=== PATIENT | male | born 1940 | race Caucasian/White ===

== ENCOUNTER → 2017-02-22 | Outpatient (CLI) | payer MEDICARE, OTHER ==
[~2017-02-22] MED LIST: ASPIRIN EC81 MG PO; ASPIRIN LO-DOSE81 MG PO; AVODART0.5 MG PO; BRILINTA90 MG PO; COUMADIN ** IA3 MG PO; COUMADIN **IA1 MG PO; CRESTOR40 MG PO; DESYREL50 MG PO; FISH OIL1000 MG PO; NEXIUM40 MG PO; OCUVITE WITH L1 EACH PO; PLAVIX75 MG PO; RANEXA1000 MG PO; STOOL SOFTENER100 M1 PO; TYLENOL EXTRA500 MG PO
== END | disposition disaster alternative care site (69) ==
LOC: GRAD 11:53
DX: I71.4 Abdominal aortic aneurysm, without rupture (principal); R31.9 Hematuria, unspecified; N13.2 Hydronephrosis with renal and ureteral calculous obstruction; I77.819 Aortic ectasia, unspecified site

== ENCOUNTER → 2017-02-28 | Outpatient (CLI) | payer MEDICARE, OTHER | LOC: LGSMG 14:43 | DX: R06.02 Shortness of breath (principal) ==

== ENCOUNTER → 2017-03-05 | Outpatient (CLI) | payer MEDICARE, OTHER ==
--- NOTE | ~2017-03-05 | PUL ---
PATIENT'S NAME: ELIDA DAVIS [facility] AGE: 76 Y [address] ROOM: [place] [address] LOCATION: [facility] ADMIT DATE: 03/05/2017 Pulmonary DISCHARGE DATE: FAMILY PHYSICIAN: CALOS MITCHELL MD ATTENDING PHYSICIAN: CALOS MITCHELL NAME OF PROCEDURE: Pulmonary Function Test DATE OF PROCEDURE: March 05, 2017 TECH: ATripe, POT HOLDER BINDER REASON FOR EXAM: Shortness of breath on exertion RESULTS: 1. FVC was 3.04 liters which is 81% of predicted and normal, FEV1 was 2.31 liters which is 85% of predicted and normal, and FEV1/FVC was 76% and normal. The flow volume curve did not reveal any significant airflow limitation. After bronchodilator administration FVC increased to 3.11 liters which is a 2% increase and FEV1 increased to 2.46 liters which is a 6% increase. FEV1/FVC was 79%. 2. DLCO was 10.1 with an adjusted DLCO of 11.3 which is 65% of predicted and normal. 3. Total lung capacity was 5.33 liters which is 93% of predicted and normal, and residual volume was 2.29 liters which is 95% of predicted and normal. PHYSICIAN INTERPRETATION: The patient has no airflow limitation and no significant bronchodilator response. His diffusion capacity is normal. There is no evidence of restrictive lung disease. Essentially this is a normal pulmonary function test. MD BARRERA SANTIZO/sami /[id number] dtt: 03/06/17 1248 , ZULLY MCNEAL dtd: 03/06/17 1003
--- NOTE | ~2017-03-05 | PUL ---
PATIENT'S NAME: ELIDA DAVIS [facility] AGE: 76 Y [address] ROOM: [place] [address] LOCATION: [facility] ADMIT DATE: 03/05/2017 Pulmonary DISCHARGE DATE: FAMILY PHYSICIAN: CALOS MITCHELL MD ATTENDING PHYSICIAN: CALOS MITCHELL NAME OF PROCEDURE: Six Minute Walk Test DATE OF PROCEDURE: March 05, 2017 TECH: ATripe, RECEPTIONIST AIRLINE LOUNGE REASON FOR EXAM: Shortness of breath on exertion RESULTS: The test was performed on room air. The patient walked for 1500 feet at a pace of 2.84 miles/hour. His oxygen saturation was 98% at the beginning of the test, and 96% after the test. He had no periods of rest. His perceived dyspnea was 4/10 on the So scale. He had appropriate increases in his heart rate and blood pressure. PHYSICIAN INTERPRETATION: The patient has no significant exercise limitation. There is no evidence of exercise induced hypoxia or significant desaturations. MD BARRERA SANTIZO/sami /[id number] dtt: 03/06/17 1253 , ZULLY MCNEAL dtd: 03/06/17 1005
== END | disposition disaster alternative care site (69) ==
LOC: GRTH 12:31
DX: R06.02 Shortness of breath (principal)

== ENCOUNTER → 2017-03-07 | Outpatient (CLI) | payer MEDICARE, OTHER | END | disposition disaster alternative care site (69) | LOC: LGSMG 11:43 | DX: R06.09 Other forms of dyspnea (principal) ==

== ENCOUNTER → 2017-03-08 | Outpatient (CLI) | payer MEDICARE, OTHER ==
--- NOTE | ~2017-03-08 | ESTC ---
Cardiac Perfusion Imaging Demographics Patient Name RYAN Grimaldo Gender Male Patient Number [id number] Race Visit Number [id number] [place] [id number] Room Number Accession Number [id number] Height 68 inches Date of 1940 Weight 156 pounds Interpreting Leah Eller Date of study 03/08/2017 Physician Supervising /KELLENP Elliot Bradshaw APRN NM Technologist Ana Gutierrez Ordering Physician Leah Eller Stress MD manufacturing production technician Stress ECG Reading Elliot Bradshaw APRN Nurse Frandy Sharp Physician RN Medications Reviewed with Patient prior to Procedure. Procedure Procedure Type: Nuclear Stress Test:Exercise, Cardiolite Stress Test Procedure Start time: 03/08/2017 08:10 Indications: Angina, History of CAD and Dyspnea. Risk Factors The patient risk factors include:prior PCI on 08/02/2016;former tobacco use, hypercholesterolemia, family history of premature CAD, dyslipidemia and ( years not smokin). Conclusions Summary Perfusion Images: The overall quality of the study is poor, due to gastrointestinal tracer uptake. Left ventricular cavity is noted to be normal on the stress and normal on the rest images. There is no evidence of abnormal lung activity. The right ventricle is not visualized an cannot be assessed. Impression ECG portion of the exercise stress test is clinically positive for ischemia by diagnostic criteria. > [address] depressions in leads 1, aVL, V4,5,6 that persist > 5 minutes into recovery. Myocardial perfusion imaging appears normal, however due to scatter artifact, it is difficult to exclude ischemia in the inferior wall. Overall left ventricular systolic function was normal. Calculated LVEF is 65% and TID ratio is 0.99. Recommendation Given the clinical presentation of BRYAN that is new onset, having to limit activities due to sob, that recur with exertion, and high risk findings on ecg portion of exercise stress test in patient with known CAD, the presentation is consistent with unstable angina. Of note, PFT's were normal. We will make arrangements for cardiac cath after discussing with patient. Stress Protocols Resting ECG Normal sinus rhythm. Pre-stress physical exam: Patient assessed by Sophia GONZALEZ prior to testing. Chest - CTA Cardio - RRR, S1, S2 Peak HR:137 bpm HR response: Appropriate Peak BP:142/50 mmHg BP response: Appropriate Predicted HR: 146 bpm HR/BP product:90966 % of predicted HR: 94 Reason for termination:Target heart rate ECG Findings Indeterminate ECG due to lead placement and artifact. Arrhythmias No rhythm abnormality noted from areas of interpretation. Symptoms Shortness of breath. Complications Procedure complication: None. Stress Interpretation Patient walked for 7.5 minutes through 3 stages of GAVI protocol. Appropriate hemodynamic response to exercise. No significant ST-T wave changes with exercise due to EKG artifact. First interpretable EKG during Will correlate with nuclear images. Imaging Results Applied corrections - Motion correction applied High risk findings Summed scores - Summed stress score: 8 - Summed rest score: 5 - Summed difference score: 3 Stress ejection Ejection fraction:66 % EDV :96 ml ESV :33 ml Stroke volume :63 ml LV mass :135 gr Imaging Protocols Rest Stress Isotope:Tc99m Sestamibi IV Isotope: Tc99m Sestamibi IV Isotope dose:10.7 mCi Isotope dose:31.8 mCi Date:03/08/2017 06:58 Date:03/08/2017 09:00 Technique: SPECT Technique: Gated Supine SPECT Supine Scan Time:45-60 minutes post Scan Time:45-60 minutes post injection injection Medical History Admission Data Admission date: 03/08/2017 Admission Time: 06:32 Hospital Status: Outpatient. Signatures dtt: DAPHNIE AGUILAR dtd: 03/08/17 0810 Physician Self Edit
--- NOTE | ~2017-03-08 | ECHO ---
Transthoracic Echocardiography Report (TTE) Demographics Patient Name ELIDA DAVIS Date of Study 03/08/2017 Patient Number [id number] Visit Number [id number] Date of 1940 Room Number Gender Male Number Age 76 year(s) Referring Leah Eller Stained Glass Artist Ana Collins, Physician RT,RVT,RDCS Physician Interpreting Leah Eller Professor Of Religious Studies Physician Supervising Ordering Leah Eller MD/MLP Physician Nurse Stress Personal Vehicle Advisor Conclusions Contractility Score Summary Normal Left Ventricular contractility was noted. Summary Normal LV/RV size and systolic function. The estimated left ventricular ejection fraction is 65-70%. Diastolic flow assessment reveals impaired relaxation consistent with Grade I diastolic dysfunction . Mild concentric left ventricular hypertrophy. Mild left atrial enlargement. There is moderate aortic regurgitation by color Doppler. No evidence of pericardial effusion. Procedure Type of Study TTE procedure:2D Echocardiogram, M-Mode, Doppler , Color Doppler. Procedure Date Date: 03/08/2017 Start: 09:21 AM Study Location: Echo Lab Technical Quality: Adequate visualization Indications:Heart murmur. Appropriate Use Criteria: 9 Patient Status: Routine HR: 70 bpm BP: 164/72 mmHg Allergies - Other:(Lipitor). M-Mode/2D Measurements LV Diastolic Dimension: 4.76 cm LV Systolic Dimension: 2.61 cm LV Septum Diastolic: 1.05 cm LV PW Diastolic: 1.21 cm Cardiac Output: 5.74 l/min RV Diastolic Dimension: 2.37 cm LVOT VTI: 26.1 cm EF Estimated: 70 % LV Stroke volume: 81.95 ml Doppler Measurements AV Peak Velocity: 1.57 m/s MV Peak E-Wave: 0.93 m/s AV Peak Gradient: 9.86 mmHg MV Peak A-Wave: 1.01 m/s AV Mean Gradient: 4 mmHg MV E/A Ratio: 0.92 LVOT Peak Velocity: 1.12 m/s MV P1/2t: 53 msec AV P1/2t: 455 msec TR Gradient:22.28 mmHg PV Peak Velocity: 1.24 m/s Estimated RAP:10 mmHg PV Peak Gradient: 6.15 mmHg Estimated RVSP: 32 mmHg Estimated PASP: 32.28 mmHg E' Septal Velocity: 0.08 m/s A' Septal Velocity: 0.1 m/s MV E/E' Ratio: 10.8 Findings Left Ventricle Mild concentric left ventricular hypertrophy. Right Ventricle Normal right ventricle structure and function. Left Atrium Mild left atrial enlargement. Right Atrium Normal right atrial size. Poor subcostal images, unable to see IVC. Mitral Valve Normal mitral valve structure and function. Aortic Valve There is moderate aortic regurgitation by color Doppler. Tricuspid Valve The pulmonary pressure (RVSP) is 32.0 mmHg. Pulmonic Valve Normal pulmonic valve structure and function. Pericardial Effusion No evidence of pericardial effusion. Pleural Effusion No evidence of pleural effusion. Contractility Score LV regional wall motion:(0-Non visualized 1-Normal 2-Hypokinesis 3-Akinesis 4-Dyskinesis 5-Aneurysm) Signature dtt: MARIA DE JESUS AGUILAR dtd: 03/08/17 0921 Physician Self Edit
== END | disposition disaster alternative care site (69) ==
LOC: GRAD 06:32
DX: I20.0 Unstable angina (principal); E78.00 Pure hypercholesterolemia, unspecified; E78.5 Hyperlipidemia, unspecified; I35.1 Nonrheumatic aortic (valve) insufficiency; Z87.891 Personal history of nicotine dependence; Z82.49 Family history of ischemic heart disease and other diseases of the circulatory system
CPT/HCPCS: A9500

== ENCOUNTER → 2017-03-11 | Outpatient (CLI) | payer MEDICARE, OTHER ==
[2017-03-11 12:50] LABS: BILIRUBIN URINE NEGATIVE (NEGATIVE); BLOOD URINE 250 /UL (NEGATIVE); COLOR URINE YELLOW (YELLOW); GLUCOSE URINE NEGATIVE (NEGATIVE); KETONE URINE NEGATIVE (NEGATIVE); LEUKOCYTES URINE 25 /UL (NEGATIVE); NITRITE URINE NEGATIVE (NEGATIVE); PH URINE 6.5 (4.0-8.0); PROTEIN URINE 100 mg/dL (NEGATIVE); SPEC GRAVITY URINE 1.015 (1.003-1.035); TURBIDITY URINE CLEAR (CLEAR); UROBILINOGEN URINE 1 mg/dL (NORMAL)
[2017-03-11 13:01] LABS: BACTERIA URINE NEGATIVE (NEGATIVE); EPITHELIAL URINE RARE #/HPF (NEGATIVE); MUCUS URINE 1+ (NEGATIVE); RBC URINE 20-50 #/HPF (NEGATIVE); WBC URINE 0-2 #/HPF (NEGATIVE)
== END ==
LOC: LGSMG 10:23
PROVIDERS: Internal Medicine Nephrology
DX: R80.9 Proteinuria, unspecified (principal)

== ENCOUNTER → 2017-03-11 | Outpatient (CLI) | payer MEDICARE, OTHER | END | disposition disaster alternative care site (69) | LOC: GRAD 12:23 | DX: N17.9 Acute kidney failure, unspecified (principal); J84.10 Pulmonary fibrosis, unspecified; N21.0 Calculus in bladder; N13.2 Hydronephrosis with renal and ureteral calculous obstruction ==

== ENCOUNTER 2017-03-13 06:01 | Outpatient (CLI) | payer MEDICARE, OTHER ==
[~2017-03-13] VITALS: Ht 170.2 cm; Wt 67.6 kg
--- NOTE | ~2017-03-13 | CATH ---
Cardiac Diagnostic Report Demographics Patient Name RYAN Grimaldo Gender Male Date of 1940 Age 76 year(s) Patient Number [id number] Date of Study 03/13/2017 Visit Number [id number] Room Number G[address] [place] [id number] Ht 170.2 cm Wt 67.6 kg Referring Yolie Dee MD Primary Physician Physician Performing Leah Secondary Physician Physician Daphnie GOODWIN Diagnostic [facility] Assisting Physician Physician Daphnie GOODWIN Interventional Physician Seniour Insight Manager Physician Findings and Conclusions Diagnostic Findings and Conclusion 1 vessel CAD s/p RCA stent patent Mild ostial LAD 20% Diagnostic Recommendations Medical therapy to be continued for CAD. Proceed with colonoscopy OK to interrupt DAPT for procedure and restart when safe. Patient will be discharged later today. Patient has been instructed to not lift anything more than 5 pounds for 1 week. Aggressive risk factor management. Cardiac diet . Procedure Description The patient was brought to the diagnostic cardiac catheterization-EP laboratory in the fasting, non-sedated state. Informed consent was obtained in the written and verbal form after the risks and benefits were explained. The patient had no further questions and agreed to proceed. The planned puncture-incision site(s) were shaved and prepped with ChloraPrep and draped in the usual sterile manner. Conscious sedation, supplemental oxygen, and pain control medications were delivered by a registered nurse under physician guidance. Surface ECG rhythm, blood pressure measurement, and pulse oximetry were monitored throughout the procedure. Arterial access. The access site was infiltrated with lidocaine. The vessel was entered with the Seldinger technique. A sheath was advanced into the vessel and used for catheter placement. Selective left coronary angiography. A catheter was advanced into the left coronary vessel ostium under Fluoroscopic guidance. Contrast was injected by hand. Images were obtained in multiple projections. Selective right coronary angiography. A catheter was advanced into the right coronary vessel ostium under fluoroscopic guidance. Contrast was injected by hand. Images were obtained in multiple projections. Left heart catheterization. A catheter was advanced across the aortic valve to the left ventricle under fluoroscopic guidance. Resting hemodynamics were obtained. Arterial artery hemostasis was achieved. The patient was transferred to a regular nursing floor via cart accompanied by a nurse. The patient left the laboratory in stable condition. Diagnostic Cath Status: Elective Procedure Procedure Type Diagnostic procedure:Angiography:, Coronary Angios w/C Indications: Shortness of breath w/exertion and Angina. The procedure was explained in detail to the patient. Risks, complications and alternative treatments were reviewed. Written consent was obtained. Medications Reviewed with Patient prior to Procedure. Angiographic Findings Dominance: Right Cardiac Arteries and Lesion Findings LMCA: wnl LAD: Abnormal.ostial lesion 20% diag wnl Lesion on Prox LAD: Ostial.20% stenosis . LCx: Abnormal. RCA: Abnormal.stent patent with 20% mid rca lesion PL wnl PDA wnlThere is a previous stent on Mid RCA Distal subsection. Lesion on Mid RCA: Mid subsection.20% stenosis . Coronary Tree Procedure Data Procedure Date Date: 03/13/2017Start: 08:28 AMEnd: 08:56 AM Entry Locations - Retrograde Percutaneous access was performed through the Radial artery (Primary location). A 6 Fr sheath was inserted. Hemostasis was successfully obtained using Mechanical Compression. Closure Comments: r band with 12 cc air, deployed by yury. Procedure Medications Order and Administration + + + + + !Time !Medication !Dosage !Route ! + + + + + !03/13/2017 08:26 AM !Versed !1 mg !I.V. ! + + + + + 03/13/2017 08:27 AM !Fentanyl !50 mcg !I.V. ! + + + + + !03/13/2017 08:28 AM !Versed !1 mg !I.V. ! + + + + + !03/13/2017 08:31 AM !Radial Verapamil !2.5 mg !I.A. ! + + + + + !03/13/2017 08:33 AM !Oxygen !3 l/min !NC ! + + + + + !03/13/2017 08:43 AM !Nitroglycerin !100 mcg !I.C. ! + + + + + !03/13/2017 08:46 AM !Heparin (ACC_3) !5000 units !I.V. bolus ! + + + + + Devices Used - A5 Fr. BS MPA2 Diag. Catheterwas used for:Left coronary angiography. - A6 Fr. ECR 3.5 Guide Catheterwas used for:Right coronary angiography. Contrast Material - Isovue 15199 ml Fluoroscopy Time: Diagnostic: 6:54 minutes. Total: 6:54 minutes. Fluoroscopy Dose: Diagnostic: 615 mGy. Total: 615 mGy. Estimated Blood Loss: 10 ml. Medical History Allergies - Other:(Lipitor). - Other:(atrovastatin). Risk Factors The patient risk factors include:prior PCI on 08/02/2016;peripheral arterial disease, cerebrovascular disease, physical activity, treated hypercholesterolemia, family history of premature CAD, last creatinine: 1.3 mg/dl, creatinine clearance: 47.67 ml/min, dyslipidemia, former tobacco use and prior [place] . Admission Data Admission Date: 03/13/2017 Admission Time: 06:01 AM Admit Source: Other Insurance Payors: Medicare. Admission Medications + +------+-------+ + + + + !Medication !Dosage!Times !Last !Last !Administered !Comments ! ! ! !Per Day!Delivery !Delivery ! ! ! ! ! ! !Date !Time ! ! ! + +------+-------+ + + + + !Clopidogrel! ! ! ! ! ! ! + +------+-------+ + + + + !Statin ! ! ! ! ! ! ! !(any) ! ! ! ! ! ! ! + +------+-------+ + + + + Clinical Evaluation Leading to Procedure - The patient's CAD presentation was assessed as: Unstable angina. - The patient's anginal syndrome during the past two weeks was assessed as: Class III according to the [place] Cardiovascular Society Classification System (CCS). - The patient has been in a state of heart failure within the past two weeks. - The patient's heart failure status was assessed as NYHA Class II, with CHF symptoms of BRYAN. 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 Hemodynamics Condition: Rest O2 Consumption: Estimated: 193.14Heart Rate: 53 bpm Pressures (mmHg) +-----+ + !Site !Pressure ! +-----+ + !AO !106/48 (71) ! +-----+ + !LV !102/17 ,18 ! +-----+ + !AO !100/52 (74) ! +-----+ + !LV !100/17 ,18 ! +-----+ + Valve Gradients and Areas + +---------+---------+---------+ +---------+ + !Valve !Peak !Mean !Area !Index !Flow !Source ! + +---------+---------+---------+ +---------+ + !Aortic !0 !0 ! ! ! ! ! + +---------+---------+---------+ +---------+ + !Aortic !0 !0 ! ! ! ! ! + +---------+---------+---------+ +---------+ + Shunts Oxygen Values O2 Capacity 155.04 O2 Consumption 193.14 Signatures dtt: DAPHNIE AGUILAR dtd: 03/13/17827 Physician Self Edit
[~2017-03-13 06:01] MED LIST changes: -ASPIRIN EC81 MG PO; -AVODART0.5 MG PO
[2017-03-13 06:40] LABS: BASOPHIL % 0.2 %; EOSINOPHIL # 0.1 K/uL (0.0-0.5); EOSINOPHIL % 2.5 %; HEMATOCRIT 36.4 % (37.0-53.0); HEMOGLOBIN 11.4 g/dL (11.0-16.0); IMMATURE GRANULOCYTE # 0.1 K/uL (0.0-0.3); IMMATURE GRANULOCYTE % 0.9 %; LYMPHOCYTE # 1.4 K/uL (0.8-4.0); LYMPHOCYTE % 24.2 %; MCH 26.1 pg (27.0-34.0); MCHC 31.3 gm/dL (32.0-36.5); MCV 83.3 fl (83.0-98.0); MONOCYTE # 0.8 K/uL (0.0-1.0); MONOCYTE % 14.2 %; MPV 8.9 fl (9.4-12.4); NEUTROPHIL # (ANC) 3.3 K/uL (1.4-9.0); NRBC % 0 /100WBC (0-0.00); PLATELET COUNT 317 K/uL (150-450); RBC 4.37 M/uL (3.50-5.50); RDW-CV 20.2 % (11.9-14.6); WBC 5.6 K/uL (4.0-11.0)
[2017-03-13 06:49] LABS: INR - (THERAPEUTIC) 1.02 (0.92-1.07); PROTIME 10.7 SECONDS (9.8-11.4); PTT 26 SECONDS (25-32)
[2017-03-13 06:55] LABS: ALBUMIN 3.3 gm/dL (3.5-5.0); CALCIUM 8.1 mg/dL (8.5-10.5); CREATININE 1.3 mg/dL (0.6-1.3); TOTAL BILIRUBIN 0.4 mg/dL (0.0-1.5); TOTAL PROTEIN 6.9 g/dL (6.0-8.4)
[2017-03-20] MEDS ORDERED: ASPIRIN EC81 MG PO (10:11)
[2017-03-25] MEDS ORDERED: AVODART0.5 MG PO (15:03)
== END 2017-03-13 12:57 | disposition disaster alternative care site (69) ==
LOC: GPCU 06:01 → GCAT 06:01 → GPOC 11:00 → GCAT 11:00
PROVIDERS: Internal Medicine Interventional Cardiology
PROC: 4A023N7 Measurement of Cardiac Sampling and Pressure, Left Heart, Percutaneous Approach (ICD-10-PCS; principal; 2017-03-13)
PROC: B216YZZ Fluoroscopy of Right and Left Heart using Other Contrast (ICD-10-PCS; 2017-03-13)
DX: I20.0 Unstable angina (principal); R00.1 Bradycardia, unspecified
CPT/HCPCS: C1887; J1644; J2250; J3010; J7030

== ENCOUNTER → 2017-03-25 | Day surgery (SDC) | payer MEDICARE, OTHER ==
[~2017-03-25] VITALS: Ht 170.2 cm; Wt 66.8 kg
[~2017-03-25] MED LIST changes: +ASPIRIN EC81 MG PO; +AVODART0.5 MG PO
--- NOTE | ~2017-03-25 | OR ---
PATIENT'S NAME: ELIDA DAVIS [facility] AGE: 76 Y [address] ROOM: [place] [address] LOCATION: [facility] ADMIT DATE: 03/25/2017 OR/Procedure Report DISCHARGE DATE: FAMILY PHYSICIAN: CALOS MITCHELL MD ATTENDING PHYSICIAN: Sergey Helton SURGEON: Sergey Helton MD BULBS FARMWORKER: DATE OF PROCEDURE: 03/25/2017 PREOPERATIVE DIAGNOSES: 1. Gross hematuria. 2. Left ureteral calculus. 3. Left hydronephrosis likely secondary to left ureteral calculus. 4. Chronic renal insufficiency. 5. Benign prostatic hypertrophy with minimal symptoms. POSTOPERATIVE DIAGNOSES: 1. Gross hematuria. 2. Left ureteral calculus. 3. Left hydronephrosis likely secondary to left ureteral calculus. 4. Chronic renal insufficiency. 5. Benign prostatic hypertrophy with minimal symptoms. PROCEDURES: Cystoscopy and retrograde. ANESTHESIA: Sedation. INDICATION: This is a 76-year-old gentleman, who had an episode of gross hematuria. He had associated flank pain. He was found to have a left distal ureteral calculus. His pain symptoms resolved. It was felt that he likely passed the stone, that is likely the source of his dilation. However, he has a smoking history and continues to smoke. He presents at this time for cystoscopy and we will make sure the upper tracts were okay and the hydronephrosis has resolved. DESCRIPTION OF PROCEDURE: Having obtained his informed consent, the patient was taken to the Cystoscopy Suite. He was prepped and draped sterilely and in lithotomy position. IV sedation was administered. A 21-Cymraes cystoscope was assembled and guided into the urethra. He has trilobar hypertrophy and we have to look up and over his friable middle lobe. That is a prime candidate for the bleeding in conjunction with his Plavix therapy based on his evaluation thus far. Moving on to the bladder, we find no tumors, stones, or foreign bodies. Bladder examination was confirmed with 70-degree lens. Under fluoroscopy, he has a normal bowel gas pattern. Soft tissue outlines PATIENT'S NAME: ELIDA DAVIS [facility] AGE: 76 Y [address] ROOM: [place] [address] LOCATION: [facility] [place] ADMIT DATE: 03/25/2017 OR/Procedure Report DISCHARGE DATE: FAMILY PHYSICIAN: CALOS MITCHELL MD ATTENDING PHYSICIAN: Sergey Helton were unremarkable. I see no calcifications in the anticipated course of the ureters or overlying the kidneys. Contrast was instilled on the right side first. I used an acorn catheter. The upper tracts demonstrated J-hooking from his BPH. Otherwise, he has no filling defect. The ureter was narrow and delicate and the calices were finely cupped. There was no mass effect. The left side was symmetric. I suspect his pain symptoms and his hydro resolved with passage of that small stone. However, he has had bleeding since he passed a stone. I suspect it is related to the neovascularity of his BPH as well as his Plavix therapy. I am going to recommend a 2-choqi-znbvevyve inhibitor. The patient tolerated the procedure well. Blood loss was negligible. No specimens were sent. The patient was returned to the recovery area awake and in stable condition. SERGEY HELTON MD [facility]/modl /[id number] CC: MD Crist[facility] Radha Crouch MD d: 03/25/17 2343 t: 03/26/17 1112, OPERATIVE SUMMARY
[2017-03-25 12:59] LABS: BASOPHIL % 0.4 %; EOSINOPHIL # 0.1 K/uL (0.0-0.5); EOSINOPHIL % 1.4 %; HEMATOCRIT 39.5 % (37.0-53.0); HEMOGLOBIN 12.5 g/dL (11.0-16.0); IMMATURE GRANULOCYTE # 0.1 K/uL (0.0-0.3); IMMATURE GRANULOCYTE % 0.6 %; LYMPHOCYTE # 1.3 K/uL (0.8-4.0); LYMPHOCYTE % 16.1 %; MCH 27.5 pg (27.0-34.0); MCHC 31.6 gm/dL (32.0-36.5); NEUTROPHIL # (ANC) 5.8 K/uL (1.4-9.0); NEUTROPHIL % 69.5 %; NRBC % 0 /100WBC (0-0.00); PLATELET COUNT 254 K/uL (150-450); RBC 4.54 M/uL (3.50-5.50); WBC 8.3 K/uL (4.0-11.0)
[2017-03-25 13:02] LABS: RDW-CV 22.5 % (11.9-14.6)
[2017-03-25 13:18] LABS: ALBUMIN 3.3 gm/dL (3.5-5.0); ANION GAP 12.9 (10.0-19.0); CALCIUM 8.5 mg/dL (8.5-10.5); CREATININE 1.3 mg/dL (0.6-1.3); POTASSIUM 3.9 mMol/L (3.7-5.1); TOTAL PROTEIN 7.3 g/dL (6.0-8.4)
[2017-03-25 13:26] LABS: TOTAL BILIRUBIN 0.6 mg/dL (0.0-1.5)
== END ==
LOC: GPOC 03-20 11:00 → GSDC 12:13
PROVIDERS: Urology
PROC: BT14YZZ Fluoroscopy of Kidneys, Ureters and Bladder using Other Contrast (ICD-10-PCS; principal; 2017-03-25)
DX: N13.2 Hydronephrosis with renal and ureteral calculous obstruction (principal); N18.9 Chronic kidney disease, unspecified; N40.1 Benign prostatic hyperplasia with lower urinary tract symptoms; I25.10 Atherosclerotic heart disease of native coronary artery without angina pectoris; I73.9 Peripheral vascular disease, unspecified; I65.22 Occlusion and stenosis of left carotid artery; Z88.8 Allergy status to other drugs, medicaments and biological substances; Z79.899 Other long term (current) drug therapy; Z87.891 Personal history of nicotine dependence
CPT/HCPCS: J1956; J2001; J7120

== ENCOUNTER → 2017-04-02 | Day surgery (SDC) | payer MEDICARE, OTHER ==
[~2017-04-02] VITALS: Ht 170.2 cm; Wt 66.0 kg
== END | disposition disaster alternative care site (69) ==
LOC: GEND 08:25 → GOPP 08:30
PROC: 0DB48ZX Excision of Esophagogastric Junction, Via Natural or Artificial Opening Endoscopic, Diagnostic (ICD-10-PCS; principal; 2017-04-02)
PROC: 0DB98ZX Excision of Duodenum, Via Natural or Artificial Opening Endoscopic, Diagnostic (ICD-10-PCS; 2017-04-02)
PROC: 0DB68ZX Excision of Stomach, Via Natural or Artificial Opening Endoscopic, Diagnostic (ICD-10-PCS; 2017-04-02)
PROC: 0DJD8ZZ Inspection of Lower Intestinal Tract, Via Natural or Artificial Opening Endoscopic (ICD-10-PCS; 2017-04-02)
PROC: 0DJD8ZZ Inspection of Lower Intestinal Tract, Via Natural or Artificial Opening Endoscopic (ICD-10-PCS; 2017-04-02)
DX: K57.30 Diverticulosis of large intestine without perforation or abscess without bleeding (principal); K31.89 Other diseases of stomach and duodenum; I25.10 Atherosclerotic heart disease of native coronary artery without angina pectoris; N17.9 Acute kidney failure, unspecified; D50.9 Iron deficiency anemia, unspecified; Z88.8 Allergy status to other drugs, medicaments and biological substances; Z79.01 Long term (current) use of anticoagulants; Z79.82 Long term (current) use of aspirin; Z79.899 Other long term (current) drug therapy
CPT/HCPCS: J2001; J7030

== ENCOUNTER → 2017-04-03 | Outpatient (CLI) | payer MEDICARE, OTHER | END | disposition disaster alternative care site (69) | LOC: GOPD 03-26 15:30 | PROVIDERS: Internal Medicine Nephrology | PROC: 0TB13ZX Excision of Left Kidney, Percutaneous Approach, Diagnostic (ICD-10-PCS; principal; 2017-04-03) | DX: N17.9 Acute kidney failure, unspecified (principal); R31.9 Hematuria, unspecified | CPT/HCPCS: J2001; J2250; J3010 ==

== ENCOUNTER → 2017-04-10 | Outpatient (CLI) | payer MEDICARE, OTHER ==
[2017-04-10 09:09] LABS: BASOPHIL % 0.4 %; EOSINOPHIL # 0.2 K/uL (0.0-0.5); EOSINOPHIL % 2.9 %; HEMATOCRIT 44.3 % (37.0-53.0); IMMATURE GRANULOCYTE # 0.1 K/uL (0.0-0.3); IMMATURE GRANULOCYTE % 0.7 %; LYMPHOCYTE # 1.1 K/uL (0.8-4.0); LYMPHOCYTE % 14.8 %; MCH 28.5 pg (27.0-34.0); MCHC 31.6 gm/dL (32.0-36.5); MCV 90.2 fl (83.0-98.0); MONOCYTE # 0.8 K/uL (0.0-1.0); MONOCYTE % 11.7 %; MPV 9.1 fl (9.4-12.4); NEUTROPHIL % 69.5 %; NRBC % 0 /100WBC (0-0.00); PLATELET COUNT 272 K/uL (150-450); RBC 4.91 M/uL (3.50-5.50); RDW-CV 22.2 % (11.9-14.6); WBC 7.2 K/uL (4.0-11.0)
[2017-04-10 09:24] LABS: ALBUMIN 3.3 gm/dL (3.5-5.0); ANION GAP 10.4 (10.0-19.0); CALCIUM 8.2 mg/dL (8.5-10.5); CREATININE 1.2 mg/dL (0.6-1.3); POTASSIUM 4.4 mMol/L (3.7-5.1); TOTAL PROTEIN 7.3 g/dL (6.0-8.4)
[2017-04-10 09:35] LABS: TOTAL BILIRUBIN 0.4 mg/dL (0.0-1.5)
== END | disposition disaster alternative care site (69) ==
LOC: LNHI 09:02
PROVIDERS: Internal Medicine Interventional Cardiology
DX: I65.22 Occlusion and stenosis of left carotid artery (principal); E78.5 Hyperlipidemia, unspecified; I25.10 Atherosclerotic heart disease of native coronary artery without angina pectoris

== ENCOUNTER → 2017-04-16 | Outpatient (CLI) | payer MEDICARE, OTHER | LOC: LGSMG 10:37 | DX: N17.9 Acute kidney failure, unspecified (principal); R31.9 Hematuria, unspecified; I10 Essential (primary) hypertension; R80.9 Proteinuria, unspecified ==